=== PATIENT | female | born 1940 | race Caucasian/White ===

== ENCOUNTER 2021-07-17 12:23 | Emergency (ER) | payer MEDICARE ==
[2021-07-17 13:15] LABS: HEMOGLOBIN 15.1 gm/dl (12.3-15.3); RED BLOOD COUNT 5.01 M/UL (4.00-5.10); WHITE BLOOD COUNT 7.9 K/UL (4.5-11.0)
[2021-07-17 13:42] LABS: BUN/CREATININE RATIO 26 (0-10)
[2021-07-17] MEDS ORDERED: HYDROCHLOROTHIA25 MG PO ×2 (15:11→15:16)
[2021-07-17] MEDS ORDERED: ZESTRIL20 MG PO ×2 (15:11→15:16)
== END 2021-07-17 15:29 | disposition home or self-care (01) ==
LOC: ER1 12:23
PROVIDERS: Physician Assistant
DX: I16.0 Hypertensive urgency (principal)
CPT/HCPCS: 71045; 80053; 81001; 85025; 93005; 99284

== ENCOUNTER → 2021-09-25 | Outpatient (CLI) | payer MEDICARE ==
[~2021-09-25] MED LIST: HYDROCHLOROTHIA25 MG PO; ZESTRIL20 MG PO
== END ==
LOC: HEART 5 08:24
DX: R94.31 Abnormal electrocardiogram [ECG] [EKG] (principal); R01.1 Cardiac murmur, unspecified; I70.0 Atherosclerosis of aorta; I08.8 Other rheumatic multiple valve diseases; I11.9 Hypertensive heart disease without heart failure
CPT/HCPCS: 93306